=== PATIENT | female | born 1955 | race Caucasian/White ===

== ENCOUNTER 2016-08-26 08:37 | Day surgery (SDC) | payer BC ==
[~2016-08-26 08:37] MED LIST: Lactated Ringers 1,000 ML IV SCH; Lidocaine 1%/Sod Bicarbonate in NS 8.4% 1 ML Syringe PRN; Propofol 200 MG/20 ML SDV ONE; Sodium Chloride 0.9% 10 ML Syringe FLUSH PRN
--- NOTE | 2016-08-26 09:10 | PCM.PREANE ---
Preanesthetic Assessment - Procedure Proposed Procedure: Diagnostic EGD and colonoscopy - Anesthesia/Transfusion/Family Hx Anesthesia History: Prior Anesthesia Without Reaction Family History of Anesthesia Reaction: No Transfusion History: Prior Transfusion Without Reaction (35yrs ago without complication) - Review of Systems General: No Symptoms Pulmonary: No Symptoms Cardiovascular: Other (HTN ) Gastrointestinal: No symptoms Neurological: No Symptoms Other: Reports: Easy Bleeding, Easy Bruising, Depression, Anxiety - Physical Assessment NPO Status Date: 08/25/16 NPO Status Time: 19:00 Pulse: 71 O2 Sat by Pulse Oximetry: 96 Respiratory Rate: 16 Blood Pressure: 169/88 Temperature: 36.7 C Height: 1.63 m Weight: 87.997 kg ASA Class: 2 Mental Status: Alert & Oriented x3 Airway Class: Mallampati = 2 Dentition: Reports: Normal Dentition Thyro-Mental Finger Breadths: 3 Mouth Opening Finger Breadths: 3 ROM/Head Extension: Full Lungs: Clear to auscultation, Normal respiratory effort Cardiovascular: Regular Rate, Regular Rhythm - Allergies Allergies/Adverse Reactions: Allergies Allergy/AdvReac Type Severity Reaction Status Date / Time Sulfa (Sulfonamide Allergy Cannot Verified 08/25/16 15:51 Antibiotics) Remember - Blood Blood Available: No Product(s) Available: None - Anesthesia Plan Pre-Op Medication Ordered: None - Acknowledgements Anesthesia Type Planned: MAC Pt an Appropriate Candidate for the Planned Anesthesia: Yes Alternatives and Risks of Anesthesia Discussed w Pt/Guardian: Yes Pt/Guardian Understands and Agrees with Anesthesia Plan: Yes PreAnesthesia Questionnaire HEENT History: Reports: Allergic Rhinitis Cardiovascular History: Reports: High Cholesterol, Hypertension Respiratory History: Reports: Other (See Below) Other Respiratory History: cough Gastrointestinal History: Reports: Hemorrhoids, Other (See Below) Other Gastrointestinal History: abdominal fullness, lower abdomnial pain LYE TREATER History: Reports: None Neurological History: Reports: None Psychiatric History: Reports: None Endocrine/Metabolic History: Reports: Vitamin D Deficiency Hematologic History: Reports: None Immunologic History: Reports: None Oncologic (Cancer) History: Reports: None Dermatologic History: Reports: None - Past Surgical History GI Surgical History: Reports: Colonoscopy Female Surgical History: Reports: Section, Tubal Ligation Musculoskeletal Surgical History: Reports: Other (See Below) Other Musculoskeletal Surgeries/Procedures:: bilateral bunionectomy with hardware intact - SUBSTANCE USE Smoking Status *Q: Current Every Day Smoker (1ppd for 40 years) Second Hand Smoke Exposure: No Recreational Drug Use History: No - HOME MEDS Home Medications: Home Meds ALPRAZolam [Xanax] 1 mg PO BID PRN 08/25/16 [History] Aspirin [Edelmira Chewable] 81 mg PO DAILY 08/25/16 [History] Calcium Carbonate [Calcium] 500 mg PO DAILY 08/25/16 [History] Cholecalciferol (Vitamin D3) [Vitamin D3] 5,000 unit PO DAILY 08/25/16 [History] Citalopram Hydrobromide [Celexa] 40 mg PO DAILY 08/25/16 [History] Fluticasone Propionate [Flonase Allergy Relief] 1 spray NASBOTH DAILY PRN [History] Losartan/Hydrochlorothiazide [Losartan-HCTZ 100-12.5 MG] 1 tab PO DAILY [History] Multivitamin [Multivitamins] 1 tab PO DAILY 08/25/16 [History] atorvaSTATin Calcium [Atorvastatin Calcium] 10 mg PO BEDTIME 08/25/16 [History] - CURRENT (IN HOUSE) MEDS Current Meds: Current Medications Lactated Ringer's (Ringers, Lactated) 1,000 mls @ 125 mls/hr IV ASDIRECTED TOMI Stop: 08/26/16 23:00 Lidocaine/Sodium Bicarbonate (Buffered Lidocaine 1% In Ns 8.4%) 0.25 ml .XX ONETIME PRN PRN Reason: Prior to IV Start Stop: 08/26/16 18:00 Sodium Chloride (Saline Flush) 10 ml FLUSH ASDIRECTED PRN PRN Reason: Keep Vein Open Stop: 08/26/16 18:00 Discontinued Medications Propofol (Diprivan 20 Ml) Confirm Administered Dose 200 mg .ROUTE .STK-MED ONE Stop: 08/26/16 07:01
[2016-08-26] MEDS ORDERED: fentaNYL 100 MCG/2 ML SDV ONE (09:32)
[2016-08-26] MEDS ORDERED: Propofol 200 MG/20 ML SDV ONE (09:43)
--- NOTE | 2016-08-26 10:06 | PCM.OPNOTE ---
- General Post-Op/Procedure Note Date of Surgery/Procedure: 08/26/16 Operative Procedure(s): 1. EGD with antral, distal esophageal, and proximal esophageal biopsies. 2. Colonsocopy with random rectal biopsies Findings: 1. mild antritis and duodenitis. The esophagus was normal. 2. anal tags and internal hemorrhoids Pre Op Diagnosis: 1. history of pharyngeal mass and neck pain. 2. change in bowel habits, explosive diarrhea Post-Op Diagnosis: 1. mild antritis and duodenitis. 2. anal tags and internal hemorrhoids Anesthesia Technique: MAC, Moderate sedation Primary Surgeon: Charles Murillo Pathology: 1. antral, distal and proximal esophageal biopsies 2. rectal biopsies EBL in mLs: 0 Complications: None Condition: Good Free Text/Narrative:: After adequate IV sedation and analgesia was obtained the patient was placed on her left side. Through a bite block a lubricated upper endoscope was inserted into the esophagus and advanced to the stomach. Air was given here follow by entry into the duodenum. There was mild duodenitis seen in the first part. There was also mild antritis. Two biopsies were taken of the antrum for histologic review. In the retroflexed position the fundus and cardiac, regions were normal. There was no hiatal hernia. There rugal folds were normal as well. The scope was withdrawn to the GE junction, which was unremarkable endoscopically. The body of the esophagus was normal. I took two random biopsies given her history of the GE junction area and the proximal esophagus. Air was removed, as I finished the procedure. Photographs were taken for the patient and for the record. Perianal inspection and digital rectal examination were remarkable for internal hemorrhoids and small anal tags. They were uncomplicated. A lubricated colonoscope was inserted into the rectum then advanced under direct vision to the cecum without difficulty. The bowel preparation was excellent. The cecum, right colon, transverse, and descending colons were endoscopically normal with no inflammatory changes or mass lesions seen. The sigmoid and rectum were unremarkable as well. Given her history of a change in bowel habits two random biopsies were taken in the rectum for review. Photographs were taken for the patient and for the record. Air was removed, as I finished the procedure, which she tolerated well. There were no procedure complications.
--- NOTE | 2016-08-26 10:07 | PCM48HPAN ---
Post Anesthesia Note - EVALUATION WITHIN 48HRS OF ANESTHETIC Vital Signs in Normal Range: Yes Patient Participated in Evaluation: Yes Respiratory Function Stable: Yes Airway Patent: Yes Cardiovascular Function Stable: Yes Hydration Status Stable: Yes Pain Control Satisfactory: Yes Nausea and Vomiting Control Satisfactory: Yes Mental Status Recovered: Yes
[2016-08-26 10:17] VITALS: BP 133/73
== END 2016-08-26 10:45 | disposition home or self-care (01) ==
LOC: JD.SDS 08:37
PROVIDERS: ATTEND Surgery
DX: R07.0 Pain in throat (principal); M54.2 Cervicalgia; R19.7 Diarrhea, unspecified; K64.8 Other hemorrhoids; K64.4 Residual hemorrhoidal skin tags; K62.1 Rectal polyp; R19.8 Other specified symptoms and signs involving the digestive system and abdomen; F10.10 Alcohol abuse, uncomplicated; I10 Essential (primary) hypertension; E78.00 Pure hypercholesterolemia, unspecified; R10.30 Lower abdominal pain, unspecified; E55.9 Vitamin D deficiency, unspecified
CPT/HCPCS: 43239; 45380; 88305; J3010; J7120; J2704